=== PATIENT | male | born 1940 | race Caucasian/White ===

== ENCOUNTER 2023-12-22 13:25 | Inpatient (IN) | payer MEDICARE, SELFPAY ==
--- NOTE | ~2023-12-22 | XR_ITS ---
EXAMINATION: XR CHEST CLINICAL INFORMATION: Lightheadedness COMPARISON: None available. TECHNIQUE: 2 views of the chest were obtained. FINDINGS: No significant abnormality is noted involving the heart, lungs, mediastinum, bony thorax or soft tissues. Right shoulder replacement. XR/XR chest 2V IMPRESSION: No active cardiopulmonary process. Electronically signed by: Sudhir Lackey DO 12/22/2023 02:56 PM EST
--- NOTE | ~2023-12-22 | CT_ITS ---
EXAMINATION: CT HEAD WITHOUT CONTRAST CLINICAL INFORMATION: Loss of taste and smell. COMPARISON: None available. TECHNIQUE: Contiguous axial imaging was performed from the skull base to vertex without intravenous administration of contrast. This CT examination was performed using dose optimization techniques as appropriate, variously including the following: *Automated exposure control *Adjustment of mA and/or kV according to patient size (this includes techniques or standardized protocols for targeted exams where dose is matched to indication/reason for exam; i.e. extremities or head) *Use of iterative reconstruction technique DLP: 720 mGy-cm FINDINGS: There is no acute intracranial hemorrhage or evidence of territorial infarction. No abnormal mass effect or midline shift is seen. Thomas to white matter differentiation is well preserved. There is very mild patchy low attenuation change in the periventricular white matter spaces, commonly associated with chronic microangiopathy. The ventricles are normal in size. No extra-axial fluid collections are identified. The calvarium and scalp soft tissues are normal. The middle ear cavity and mastoid air cells are clear. A moderately large mucus retention cyst is seen posteriorly within the left maxillary sinus, with mild peripheral ossification. The remaining visualized paranasal sinuses are clear. CT/CT head/brain wo IV con IMPRESSION: 1. No acute intracranial pathology. 2. There is very mild patchy low attenuation change in the periventricular white matter spaces, commonly associated with chronic microangiopathy. 3. There is left maxillary sinusitis. Electronically signed by: Rupesh Hines MD 12/23/2023 10:06 PM ABBY
--- NOTE | 2023-12-22 13:28 | ED.GENADULT ---
HPI - General Adult General Chief complaint: Dizziness Stated complaint: dizziness Time Seen by Provider: 12/22/23 18:28 Source: patient, family (daughter), RN notes reviewed and old records reviewed Mode of arrival: ambulatory Limitations: no limitations History of Present Illness ED Provider: Margie WASSERMAN narrative: 83-year-old male past medical history significant for hypertension, prostate cancer, 5 years in remission presents for evaluation of dizziness. The patient's prostate cancer was treated with radiation, Patient reports dizziness for the last 1 month. His dizziness tends to be worse with positional changes He endorses decreased appetite, nausea. He denies any headache, chest pain, abdominal pain. Denies any nausea, vomiting, diarrhea. The patient is prescribed omeprazole, losartan/HCTZ, tamsulosin, he was on meloxicam but stopped this about a month ago He denies any other medications or medication changes Denies any fevers, chills. He has no other complaints or concerns at this time Related Data Allergies Allergy/AdvReac Type Severity Reaction Status Date / Time No Known Allergies Allergy Verified 12/22/23 13:30 Review of Systems Constitutional: Constitutional: Denies body ache(s), Denies chills, Denies fever(s), Reports poor appetite and Reports weakness Eyes: Eyes: Denies blurry vision ENT: Reports vertigo and Reports dizziness Cardiovascular: Cardiovascular: Denies chest pain and Denies dyspnea Respiratory: Respiratory: Denies cough and Denies dyspnea Gastrointestinal: Gastrointestinal: Denies abdominal pain, Denies nausea and Denies vomiting Musculoskeletal: Musculoskeletal: Denies back pain Integumentary/Breasts: Skin/Breast: Denies rash Neurologic: Reports vertigo, Reports dizziness and Reports weakness Psychiatric: Psychiatric: Denies anxiety PMFSH Social History Social History Smoked in Last 30 Days: No Use of substances other than those prescribed or required for medical reasons: No Advance Directives: No Advance Directives Information Provided: No Physical Exam ED Vital Signs: Vital Signs - 24 hr 12/22/23 13:29 12/22/23 18:34 12/22/23 19:02 Temperature 96.6 F L 98.0 F Pulse Rate 82 61 62 Respiratory Rate 18 14 Blood Pressure 102/62 95/60 103/64 Pulse Oximetry 98 98 Oxygen Delivery Method Room Air Room Air 12/22/23 19:03 12/22/23 19:06 Temperature Pulse Rate 63 78 Respiratory Rate Blood Pressure 109/67 97/54 L Pulse Oximetry 98 Oxygen Delivery Method Room Air BMI result Body Mass Index 29.2 Const General: healthy appearing, comfortable, no acute distress, alert and awake Nutritional Appearance: well nourished Orientation/consciousness: patient oriented x3 HENMT Head: Yes normocephalic and Yes atraumatic Eyes Eyelids: Yes eyelids normal Conjunctivae: conjunctivae normal Sclerae: sclerae normal Corneas: corneas normal Pupils: Equal, round and reactive pupils present EOM: EOMs intact bilaterally Neck Neck: Yes full ROM Resp Effort & Inspection: normal respiratory effort, able to speak in complete sentences and not labored Cardio Rate: regular rate Rhythm: regular rhythm GI Inspection: No distended Palpation (GI): Soft to palpation, not firm, nontender, no guarding and not rigid Skin General skin exam: elasticity normal Neuro General: patient oriented x3 Cranial nerves: Yes CN's II-XII intact bilaterally, Yes Equal, round and reactive pupils present and Yes Bilaterally intact EOM present Cognition (Neuro): normal cognition Extrem Other: Moving all extremities well without any obvious deformities Course Course Course Narrative: RME performed by Brandee Bradford PA-C. Patient is an 83 year old assigned male at presenting to the emergency department with a month of lightheadedness. Patient states he gets periods of feeling like he is going to pass out. Detailed physical exam and review of systems are deferred to the office support associate. EKG, labs, imaging, and swabs ordered. Patient placed back in the waiting room pending room availability and results. Reevaluation(s) Reevaluation #1: Patient is not orthostatic, he will receive 2 L IV fluid due to the ALBERT and likely hypovolemia Time: 20:17 Medications Administered Generic Name Dose Route Start Last Admin Trade Name Freq PRN Reason Stop Dose Admin Sodium Chloride 1,000 mls @ 999 mls/hr 12/22/23 20:15 12/22/23 20:15 Ns IV 12/22/23 22:15 999 mls/hr .Q1H1M [facility] Administration Medical Decision Making Medical Decision Making MDM Narrative: 83-year-old male with past medical history as documented above presents for evaluation of dizziness x1 month. He denies any history of chronic kidney disease or kidney issues at all. He is mildly hypotensive as low as 97/54. He is not tachycardic. Plan to get orthostatic vital signs. The patient's labs are significant for a creatinine of 2.43 with a BUN of 69. Possibly related to dehydration, we will get a urinalysis when the patient is able to give 1. He denies any flank pain or abdominal pain, less likely obstructive uropathy. I will attempt to get records from Differential Diagnosis Differential Diagnoses: The differential diagnosis associated with the presentation includes ALBERT Dehydration Obstructive uropathy less likely UTI Admission/Observation Consideration of admission/observation: Escalation of care including admission/observation considered Consult Healthcare Provider Management of the patient was discussed with: Hospitalist Lab Data MDM Lab Attestation statement: I reviewed the patient's lab results. No leukocytosis. The patient has a very mild anemia, normal platelet count. No significant electrolyte abnormalities the patient's BUN is elevated to 69 with a creatinine of 2.43. This likely represents ALBERT, the patient denies any known history of kidney disease we do not have any previous for comparison 12/22/23 13:52 12/22/23 13:52 Labs: Lab Results 12/22/23 12/22/23 Range/Units 13:52 19:16 WBC 5.1 (4.8-10.8) X10*3/uL RBC 4.20 L (4.60-5.80) X10*6/uL Hgb 13.8 L (14.0-18.0) g/dl Hct 39.0 L (42.0-52.0) % MCV 92.9 (80.0-98.0) fL MCH 32.9 (27.0-33.0) pg MCHC 35.4 (31.0-36.0) g/dl RDW 13.0 (11.0-16.0) % Plt Count 176 (160-400) X10*3/uL MPV 10.5 (9.4-12.4) fL Immature Gran % (Auto) 0.2 (0.0-0.4) % Neut % (Auto) 71.1 (45-73) % Lymph % (Auto) 17.8 L (20-40) % [place] % (Auto) 9.7 (2-11) % Eos % (Auto) 0.6 (0-4) % Baso % (Auto) 0.6 (0-2) % Lymph # (Auto) 0.9 L (1.2-4.9) X10*3/uL [place] # (Auto) 0.5 (0.1-1.2) X10*3/uL Eos # (Auto) 0.0 (0.0-0.4) X10*3/uL Baso # (Auto) 0.0 (0.0-0.2) X10*3/uL Abs Immat Gran (auto) 0.01 (0.00-0.03) X10*3/uL Absolute Neuts (auto) 3.6 (2.0-8.3) x10*3/uL Absolute Nucleated RBC 0.000 (0.0-0.012) X10*3/uL Nucleated RBC % (auto) 0.0 (0.0-0.2) /100WBC PT 12.8 H (10.9-12.4) SEC INR 1.1 (0.9-1.1) APTT 31.8 (26.0-36.8) SEC Sodium 140 (135-145) mmol/L Potassium 3.9 (3.3-5.1) mmol/L Chloride 101 (96-108) mmol/L Carbon Dioxide 22 (22-29) mmol/L Anion Gap 21 H (12-20) BUN 69 H (9-16) mg/dL Creatinine 2.43 H (0.5-1.4) mg/dL Estim Creat Clear Calc 26.4 Estimated GFR 26 Random Glucose 95 (60-115) mg/dL Calcium 10.7 H (8.4-10.2) mg/dL Magnesium 1.7 (1.6-2.6) mg/dL Total Bilirubin 0.9 (0.0-1.0) mg/dL AST 30 (5-37) U/L ALT 21 (0-40) U/L Alkaline Phosphatase 58 (39-117) U/L Troponin I High Sens 28.7 27.6 (<3.5-35.0) ng/L B-Natriuretic Peptide 55 (<100) pg/mL Total Protein 7.8 (6.5-8.0) g/dL Albumin 4.5 (3.5-5.0) g/dL Influenza Type A (PCR) NEGATIVE (Negative) Influenza Type B (PCR) NEGATIVE (Negative) RSV RNA Qual (PCR) NEGATIVE (Negative) SARS-CoV-2 RNA (RT-PCR) NEGATIVE (Negative) Discharge Plan Discharge Clinical Impression: ALBERT (acute kidney injury) Patient Disposition: Admitted As Inpatient Print Language: Portuguese
[2023-12-22 13:29] VITALS: BP 102/62; PULSE 82; RESP 18; TEMP 35.9; BMI 29.2
--- NOTE | 2023-12-22 13:30 | ECG_ITS ---
Test Reason : LIGHTHEADEDNESS Blood Pressure : / mmHG Vent. Rate : 076 BPM Atrial Rate : 076 BPM P-R Int : 210 ms QRS Dur : 096 ms QT Int : 378 ms P-R-T Axes : 037 -06 033 degrees QTc Int : 425 ms Sinus rhythm with 1st degree A-V block Incomplete right bundle branch block Borderline ECG No previous ECGs available Referred By: Brandee Bradford Electronically Signed By:Jono Reveles
[2023-12-22 13:59] LABS: MANUAL DIFF FLAG NO
[2023-12-22 14:01] LABS: Basophils Percent Auto 0.6 % (0-2); Eosinophils Percent Auto 0.6 % (0-4); Hemoglobin 13.8 g/dl (14.0-18.0); Imm Gran Abs Auto 0.01 X10*3/uL (0.00-0.03); Imm Gran Pct Auto 0.2 % (0.0-0.4); Lymphocytes Absolute Auto 0.9 X10*3/uL (1.2-4.9); Lymphocytes Percent Auto 17.8 % (20-40); Mean Corpuscular HGB Conc 35.4 g/dl (31.0-36.0); Mean Corpuscular Hemoglobin 32.9 pg (27.0-33.0); Mean Corpuscular Volume 92.9 fL (80.0-98.0); Mean Platelet Volume 10.5 fL (9.4-12.4); Monocytes Absolute Auto 0.5 X10*3/uL (0.1-1.2); Monocytes Percent Auto 9.7 % (2-11); Neutrophils Absolute Auto 3.6 x10*3/uL (2.0-8.3); Neutrophils Percent Auto 71.1 % (45-73); Platelet Count 176 X10*3/uL (160-400); White Blood Count 5.1 X10*3/uL (4.8-10.8)
[2023-12-22 14:06] LABS: INTERNATIONAL NORM RATIO 1.1 (0.9-1.1); Prothrombin Time 12.8 SEC (10.9-12.4)
[2023-12-22 14:08] LABS: Partial Thromboplastin Time 31.8 SEC (26.0-36.8)
[2023-12-22 14:15] LABS: Alanine Aminotransferase 21 U/L (0-40); Albumin Level 4.5 g/dL (3.5-5.0); Alkaline Phosphatase 58 U/L (39-117); Anion Gap 21 (12-20); Aspartate Amino Transferase 30 U/L (5-37); Bilirubin Total 0.9 mg/dL (0.0-1.0); Blood Urea Nitrogen 69 mg/dL (9-16); Calcium 10.7 mg/dL (8.4-10.2); Carbon Dioxide 22 mmol/L (22-29); Chloride 101 mmol/L (96-108); Creatinine Clr Calc Pharmacy 26.4; Estimated Glomerular Filt Rate 26; Glucose Random 95 mg/dL (60-115); Magnesium 1.7 mg/dL (1.6-2.6); Potassium 3.9 mmol/L (3.3-5.1); Sodium 140 mmol/L (135-145); Total Protein 7.8 g/dL (6.5-8.0)
[2023-12-22 14:21] LABS: B Type Natriuretic Peptide 55 pg/mL (<100); Troponin-I High Sensitivity 28.7 ng/L (<3.5-35.0)
[2023-12-22 16:12] LABS: Influenza A PCR NEGATIVE (Negative); Influenza B PCR NEGATIVE (Negative); Resp Syncy Virus RNA Qual PCR NEGATIVE (Negative); SARS COV2 PCR INHOUSE NEGATIVE (Negative)
[2023-12-22 18:34] VITALS: BP 95/60; PULSE 61; RESP 14; TEMP 36.7; O2SAT 98
[2023-12-22 19:02] VITALS: BP 103/64; PULSE 62; O2SAT 98
[2023-12-22 19:03] VITALS: BP 109/67; PULSE 63
[2023-12-22 19:06] VITALS: BP 97/54; PULSE 78; O2SAT 98
[2023-12-22 19:39] LABS: Troponin-I High Sensitivity 27.6 ng/L (<3.5-35.0)
[2023-12-22] MEDS: 0.9 % Sodium Chloride 1,000 ML 999 ML IV ×2 (20:15→21:10)
[2023-12-22 21:10] VITALS: BP 99/67; PULSE 64; RESP 18; TEMP 36.6; O2SAT 100
[2023-12-22 21:19] LABS: Appearance Urine Clear; Color Urine Yellow; Glucose Urine UA Negative (Negative); Leukocyte Esterase Urine Small (1+) (Negative); Nitrite Urine Negative (Negative); UMIC TRIGGER UACC YES; Urine Blood Negative (Negative); Urine Ketones Trace mg/dL (Negative); Urine Protein Trace mg/dL (Neg-Trace)
[2023-12-22 21:26] LABS: Bacteria Urine None Seen (None Seen); RBC Urine 0-2 /HPF (0-2); Squamous Epithelial Cell Urine 0-2 /HPF (0-2); UACC Culture Trigger YES; WBC Urine 0-5 /HPF (0-5)
--- NOTE | 2023-12-22 21:42 | PM.IMHP ---
History of Present Illness Date of Service: 12/22/23 Attending physician on admission: Chavo Craft Chief Complaint: Dizziness Pt is an 83-year-old male with a PMH significant for?HTN and prostate cancer s/p radiation in remission since 2019 who presents to the ED with intermittent?dizziness and lightheadedness x1 month. Symptoms primarily occur with position changes or while walking, though also occasionally happen at rest. Patient states it occasionally feels like he is spinning, has no balance, and he often needs to hold onto something in order to steady himself and prevent himself from falling. Patient denies any falls. Patient reports during this time has had poor p.o. intake of both fluids and solids. States he drinks maybe 8 oz of water daily, and has a difficult time finishing a meal. Reports losing around 10 lb during this past month. States previously he used to eat and drink well, but 4 weeks ago suddenly lost his sense of taste and no longer likes the taste of most foods. Denies early satiety, but rather reports he no longer feels like eating due to the taste. Denies any respiratory symptoms, and states he has tested negative for COVID during this time. Denies nausea, vomiting, diarrhea, or abdominal pain. No chest pain/pressure, palpitations. Denies shortness or breath or difficulty breathing. No headache. Of note, patient is on tamsulosin and losartan-hydrochlorothiazide which he has continued to take. In the ED pt with soft BP as low as 97/54. Orthostatics positive with a drop of 10 diastolic. Labs were significant for BUN 69, creatinine 2.43 (increased from 1.36 on 09/26/2023), initial troponin 28.7 with repeat flat at 27.6. No leukocytosis. Stable H&H. No significant electrolyte abnormalities. UA negative for UTI. Tested negative for flu, RSV, COVID. CXR showed no acute cardiopulmonary process. EKG demonstrated sinus rhythm with first-degree AV block, but no evidence of significant ST elevations or depressions. Pt was treated with 2 L IVF. Pt will be admitted to the hospital for treatment and further evaluation of symptomatic orthostatic hypotension in the setting of ALBERT secondary to hypovolemia and reduced p.o. intake. Review of Systems Review of Systems: Negative except for that which is stated in the HPI. PMFSH Social History Smoked in Last 30 Days: No Use of substances other than those prescribed or required for medical reasons: No Advance Directives: No Advance Directives Information Provided: No Meds Allergies Allergy/AdvReac Type Severity Reaction Status Date / Time No Known Allergies Allergy Verified 12/22/23 13:30 Active Medications: Current Medications Acetaminophen (Acetaminophen 325 Mg Tablet) 975 mg PO Q6H PRN PRN Reason: Pain, Mild (Pain Scale 1-3), fever or headache Calcium Carbonate (Calcium Carbonate 750 Mg Tab.Chew) 750 mg PO Q4H PRN PRN Reason: Heartburn Enoxaparin Sodium (Enoxaparin Sodium 30 Mg/0.3 Ml Syringe) 30 mg SUBCUT Q24H [facility] Sodium Chloride (Ns) 1,000 mls @ 999 mls/hr IV .Q1H1M [facility] Stop: 12/22/23 22:15 Last Admin: 12/22/23 21:10 Dose: 999 mls/hr Sodium Chloride (Ns) 1,000 mls @ 75 mls/hr IVCONT .[id number] [facility] Magnesium Hydroxide (Milk Of Magnesia 30 Ml Oral.Susp) 30 ml PO DAILY PRN PRN Reason: Constipation Melatonin (Melatonin 3 Mg Tablet) 6 mg PO BEDTIME PRN PRN Reason: Insomnia Sodium Chloride (0.9 % Sodium Chloride Flush 3 Ml Syringe) 3 ml IVFLUSH QSHIFT [facility] Home Medications ?Medication ?Instructions ?Recorded ?Confirmed ?Last Taken ?Type ciclopirox 0.77 % topical cream 1 appl topical BID 12/22/23 Unknown History ipratropium bromide 21 mcg (0.03 2 spray intranasal TID 12/22/23 Unknown History %) nasal spray losartan 100 1 tab PO DAILY 12/22/23 Unknown History mg-hydrochlorothiazide 12.5 mg tablet meloxicam 15 mg tablet 15 mg PO DAILY 12/22/23 Unknown History omeprazole 20 mg capsule,delayed 20 mg PO DAILY 12/22/23 Unknown History release tamsulosin 0.4 mg capsule 0.4 mg PO DAILY 12/22/23 Unknown History Physical Exam Vital Signs and Narrative: Vital Signs: Last Vital Signs Temp 97.8 F 12/22/23 21:10 Pulse 64 12/22/23 21:10 Resp 18 12/22/23 21:10 BP 99/67 12/22/23 21:10 Pulse Ox 100 12/22/23 21:10 O2 Del Method Room Air 12/22/23 21:10 BMI result Body Mass Index 29.2 General: AOx3, no acute distress Resp: CTA bilaterally CVS: S1, S2, RRR GI: +BS, NT, no distention Skin: Warm, dry Neuro: Cranial nerves II-XII grossly intact bilaterally. Motor grossly intact bilaterally Extremities: No edema Psych: Appropriate affect Results Labs 12/22/23 13:52 12/22/23 13:52 Labs: Laboratory Results - last 24 hr 12/22/23 12/22/23 12/22/23 13:52 19:16 21:12 MCV 92.9 MCH 32.9 MCHC 35.4 RDW 13.0 Plt Count 176 MPV 10.5 Immature Gran % (Auto) 0.2 Neut % (Auto) 71.1 Lymph % (Auto) 17.8 L [place] % (Auto) 9.7 Eos % (Auto) 0.6 Baso % (Auto) 0.6 Lymph # (Auto) 0.9 L [place] # (Auto) 0.5 Eos # (Auto) 0.0 Baso # (Auto) 0.0 Abs Immat Gran (auto) 0.01 Absolute Neuts (auto) 3.6 Absolute Nucleated RBC 0.000 Nucleated RBC % (auto) 0.0 PT 12.8 H INR 1.1 APTT 31.8 Anion Gap 21 H Estim Creat Clear Calc 26.4 Estimated GFR 26 Random Glucose 95 Calcium 10.7 H Magnesium 1.7 Total Bilirubin 0.9 AST 30 ALT 21 Alkaline Phosphatase 58 Troponin I High Sens 28.7 27.6 B-Natriuretic Peptide 55 Total Protein 7.8 Albumin 4.5 Urine Color Yellow Urine Appearance Clear Urine pH 5.0 Ur Specific [place] 1.020 Urine Protein Trace Urine Glucose (UA) Negative Urine Ketones Trace Urine Blood Negative Urine Nitrite Negative Ur Leukocyte Esterase Small (1+) H Urine RBC 0-2 Urine WBC 0-5 Ur Squamous Epith Cells 0-2 Urine Bacteria None Seen Hyaline Casts 3-5 Influenza Type A (PCR) NEGATIVE Influenza Type B (PCR) NEGATIVE RSV RNA Qual (PCR) NEGATIVE SARS-CoV-2 RNA (RT-PCR) NEGATIVE Imaging Radiologist's Impressions: Impressions Chest X-Ray 12/22/23 13:30 IMPRESSION: No active cardiopulmonary process. Electronically signed by: Sudhir Lackey DO 12/22/2023 02:56 PM EST RP Assessment and Plan (1) ALBERT (acute kidney injury): Status: Acute Plan Pt is an 83-year-old male with a PMH significant for?HTN and prostate cancer s/p radiation in remission since 2019 who presents to the ED with intermittent?dizziness and lightheadedness x1 month. Pt will be admitted to the hospital for treatment and further evaluation of symptomatic orthostatic hypotension in the setting of ALBERT secondary to hypovolemia and reduced p.o. intake. ALBERT Creatinine 2.43 at time of presentation, elevated from 1.36 on 09/26/2023 Secondary to reduced p.o. intake Will continue to take hydrochlorothiazide and tamsulosin Reports has not been eating or drinking much x1 month since lost sense of taste; has been drinking around 8 oz of water daily Rest of exam benign: No N/V/D/abd pain; COVID/flu/RSV negative Received 2 L IVF in the ED Hold losartan-hydrochlorothiazide, tamsulosin Monitor creatinine Symptomatic orthostatic hypotension Patient with dizziness, lightheadedness x1 Month orthostatics positive with drop of 10 diastolic Secondary to hypovolemia in the setting of reduced p.o. intake while continuing hydrochlorothiazide and tamsulosin Patient received 2 L IVF Repeat orthostatics in the morning Encourage p.o. intake HTN Hold antihypertensives for now Likely d/c hydrochlorothiazide upon discharge BPH/hx of prostate cancer Hold tamsulosin GERD PPI Full Code Attending:?Dr. Santiago DVT Prophylaxis: Lovenox Pt will require a hospitalization of at least two nights for treatment of?symptomatic orthostatic hypotension setting of ALBERT secondary to hypovolemia due to reduced p.o. intake. Patient will require IV fluid resuscitation and close monitoring of labs and vitals. Quality Stroke Does the patient have a stroke diagnosis?: No VTE Prior VTE?: No VTE Risk Level:: Medical - moderate - high VTE Device Contraindication: Treatment Not Indicated VTE Drug Contraindication: N/A - Med Ordered
[2023-12-22] MEDS: 0.9 % Sodium Chloride 1,000 ML 75 ML IVCONT (22:18)
[2023-12-23] VITALS (7 sets, daily range): BP systolic 95–128; BP diastolic 59–73; PULSE 63–87; RESP 12–20; TEMP 36.2–36.8; O2SAT 97–100
[2023-12-23 05:07] LABS: MANUAL DIFF FLAG NO
[2023-12-23 05:08] LABS: Basophils Percent Auto 1.1 % (0-2); Eosinophils Absolute Auto 0.1 X10*3/uL (0.0-0.4); Eosinophils Percent Auto 2.4 % (0-4); Hematocrit 33.9 % (42.0-52.0); Hemoglobin 12.2 g/dl (14.0-18.0); Imm Gran Abs Auto 0.01 X10*3/uL (0.00-0.03); Imm Gran Pct Auto 0.3 % (0.0-0.4); Mean Corpuscular Hemoglobin 33.3 pg (27.0-33.0); Mean Corpuscular Volume 92.6 fL (80.0-98.0); Mean Platelet Volume 10.8 fL (9.4-12.4); Monocytes Absolute Auto 0.4 X10*3/uL (0.1-1.2); Neutrophils Absolute Auto 2.1 x10*3/uL (2.0-8.3); Neutrophils Percent Auto 56.2 % (45-73); Platelet Count 160 X10*3/uL (160-400); Red Blood Count 3.66 X10*6/uL (4.60-5.80); Red Cell Distribution Width 12.7 % (11.0-16.0); White Blood Count 3.7 X10*3/uL (4.8-10.8)
[2023-12-23 05:22] LABS: Anion Gap 17 (12-20); Blood Urea Nitrogen 62 mg/dL (9-16); Calcium 9.6 mg/dL (8.4-10.2); Carbon Dioxide 19 mmol/L (22-29); Chloride 106 mmol/L (96-108); Creatinine Clr Calc Pharmacy 39.1; Estimated Glomerular Filt Rate 41; Glucose Random 87 mg/dL (60-115); Magnesium 1.5 mg/dL (1.6-2.6); Potassium 3.8 mmol/L (3.3-5.1); Sodium 138 mmol/L (135-145)
--- NOTE | 2023-12-23 07:02 | PC.NURSE ---
report given to Melany Omalley RN
[2023-12-23] MEDS: Enoxaparin Sodium 30 MG/0.3 ML SYRINGE SUBCUT (08:32)
--- NOTE | 2023-12-23 11:23 | PHA.MEDREC ---
Addendum entered by Gianna Diaz RPh 12/23/23 11:28: reviewed by [facility]. Original Note: Pharmacy Consult ? Medication Reconciliation Pharmacy has completed the medication reconciliation. Spoke to patient to confirm med list. Patient states he is no longer taking Meloxicam 15 mg.
--- NOTE | 2023-12-23 12:24 | MHC.CM.PN ---
IMM 12/23/23, PT W/DIZZINESS, OTHOSTATIC HYPOTENSION AND ALBERT, CM MET W/PT WHO REPORTS HE LIVES W/, IS INDEP W/ALL CARE AND DENIES USE OF DME/SERVICES HOWEVER PT REPORTS HIS RECEIVES [facility] AND HH SERVICES, PT DECLINES NEED FOR SERVICES FOR HIMSELF AND GOAL FOR DC IS HOME SELF-CARE. PT VERIFIES PCP IS DR. GREGORIA ALFREDO AND PCP IS LEAH JACKSON [phone], PT DECLINED TO COMPLETE A NEW HCP IT WAS COMPLETED W/[facility]AIR OFFICE, COPY REQUESTED.
[2023-12-23] MEDS: 0.9 % Sodium Chloride 1,000 ML 75 ML IVCONT (13:00)
--- NOTE | 2023-12-23 14:09 | HO.PM.IMPN ---
Subjective Subjective Date of Service: 12/23/23 Review of Systems Follow up albert, dehydration feeling better today Physical Exam Vital Signs: Vital Signs: Last Vital Signs Temp 98.1 F 12/23/23 11:16 Pulse 72 12/23/23 11:16 Resp 20 12/23/23 11:16 BP 128/73 12/23/23 11:16 Pulse Ox 98 12/23/23 11:16 O2 Del Method Room Air 12/23/23 11:16 BMI result Body Mass Index 29.2 Appearing in no acute distress lung sounds are clear to auscultation heart regular rate rhythm, clear S1, S2 positive bowel sounds, abdomen is soft, nontender neuro patient is alert x3, no focal deficits Objective Data Active Medications Acetaminophen (Acetaminophen 325 Mg Tablet) 975 mg PO Q6H PRN PRN Reason: Pain, Mild (Pain Scale 1-3), fever or headache Calcium Carbonate (Calcium Carbonate 750 Mg Tab.Chew) 750 mg PO Q4H PRN PRN Reason: Heartburn Enoxaparin Sodium (Enoxaparin Sodium 30 Mg/0.3 Ml Syringe) 30 mg SUBCUT Q24H [facility] Last Admin: 12/23/23 08:32 Dose: 30 mg Documented By: XIANG Sodium Chloride (Ns) 1,000 mls @ 75 mls/hr IVCONT .[id number] [facility] Last Admin: 12/23/23 13:00 Dose: 75 mls/hr Documented By: XIANG Magnesium Hydroxide (Milk Of Magnesia 30 Ml Oral.Susp) 30 ml PO DAILY PRN PRN Reason: Constipation Melatonin (Melatonin 3 Mg Tablet) 6 mg PO BEDTIME PRN PRN Reason: Insomnia Sodium Chloride (0.9 % Sodium Chloride Flush 3 Ml Syringe) 3 ml IVFLUSH QSHIFT [facility] Last Admin: 12/23/23 07:57 Dose: Not Given Documented By: LUKE Non-Admin Reason: Previously Administered Labs 12/23/23 04:49 12/23/23 04:49 Labs: Laboratory Results - last 24 hr 12/22/23 12/22/23 12/22/23 13:52 19:16 21:12 MCV MCH MCHC RDW Plt Count MPV Immature Gran % (Auto) Neut % (Auto) Lymph % (Auto) [place] % (Auto) Eos % (Auto) Baso % (Auto) Lymph # (Auto) [place] # (Auto) Eos # (Auto) Baso # (Auto) Abs Immat Gran (auto) Absolute Neuts (auto) Absolute Nucleated RBC Nucleated RBC % (auto) PT 12.8 H INR 1.1 APTT 31.8 Anion Gap 21 H Estim Creat Clear Calc 26.4 Estimated GFR 26 Random Glucose 95 Calcium 10.7 H Magnesium 1.7 Total Bilirubin 0.9 AST 30 ALT 21 Alkaline Phosphatase 58 Troponin I High Sens 28.7 27.6 B-Natriuretic Peptide 55 Total Protein 7.8 Albumin 4.5 Urine Color Yellow Urine Appearance Clear Urine pH 5.0 Ur Specific [place] 1.020 Urine Protein Trace Urine Glucose (UA) Negative Urine Ketones Trace Urine Blood Negative Urine Nitrite Negative Ur Leukocyte Esterase Small (1+) H Urine RBC 0-2 Urine WBC 0-5 Ur Squamous Epith Cells 0-2 Urine Bacteria None Seen Hyaline Casts 3-5 Influenza Type A (PCR) NEGATIVE Influenza Type B (PCR) NEGATIVE RSV RNA Qual (PCR) NEGATIVE SARS-CoV-2 RNA (RT-PCR) NEGATIVE 12/23/23 04:49 MCV 92.6 MCH 33.3 H MCHC 36.0 RDW 12.7 Plt Count 160 MPV 10.8 Immature Gran % (Auto) 0.3 Neut % (Auto) 56.2 Lymph % (Auto) 28.0 [place] % (Auto) 12.0 H Eos % (Auto) 2.4 Baso % (Auto) 1.1 Lymph # (Auto) 1.0 L [place] # (Auto) 0.4 Eos # (Auto) 0.1 Baso # (Auto) 0.0 Abs Immat Gran (auto) 0.01 Absolute Neuts (auto) 2.1 Absolute Nucleated RBC 0.000 Nucleated RBC % (auto) 0.0 PT INR APTT Anion Gap 17 Estim Creat Clear Calc 39.1 Estimated GFR 41 Random Glucose 87 Calcium 9.6 D Magnesium 1.5 L Total Bilirubin AST ALT Alkaline Phosphatase Troponin I High Sens B-Natriuretic Peptide Total Protein Albumin Urine Color Urine Appearance Urine pH Ur Specific [place] Urine Protein Urine Glucose (UA) Urine Ketones Urine Blood Urine Nitrite Ur Leukocyte Esterase Urine RBC Urine WBC Ur Squamous Epith Cells Urine Bacteria Hyaline Casts Influenza Type A (PCR) Influenza Type B (PCR) RSV RNA Qual (PCR) SARS-CoV-2 RNA (RT-PCR) Microbiology Microbiology Results: Microbiology 12/22/23 21:27 Urine Culture - Preliminary Urine clean catch - Clean Catch Midstream No growth to date. Assessment and Plan (1) ALBERT (acute kidney injury): Status: Acute Plan 83-year-old male with a PMH significant for?HTN and prostate cancer s/p radiation in remission since 2019 who presents to the ED with intermittent?dizziness and lightheadedness x1 month. Pt will be admitted to the hospital for treatment and further evaluation of symptomatic orthostatic hypotension in the setting of ALBERT secondary to hypovolemia and reduced p.o. intake. loss of taste and smell over one month leading to poor appetite and poor nutrition check brain ct to r/o stroke as cause of symptom ALBERT. Trending down Creatinine 2.43 at time of presentation Secondary to reduced p.o. intake and hydrochlorothiazide Reports has not been eating or drinking much x1 month since lost sense of taste; has been drinking around 8 oz of water daily IV fluids Hold losartan-hydrochlorothiazide, tamsulosin Monitor creatinine Symptomatic orthostatic hypotension Patient with dizziness, lightheadedness x1 Secondary to hypovolemia in the setting of reduced p.o. intake while continuing hydrochlorothiazide and tamsulosin follow orthostatics Encourage p.o. intake HTN Hold antihypertensives for now Likely d/c hydrochlorothiazide upon discharge BPH/hx of prostate cancer Hold tamsulosin GERD PPI Full Code Attending:?Dr. Lackey DVT Prophylaxis: VideoSurf Quality Stroke Does the patient have a stroke diagnosis?: No VTE Prior VTE?: No VTE Risk Level:: Medical - moderate - high VTE Device Contraindication: Treatment Not Indicated VTE Drug Contraindication: N/A - Med Ordered
[2023-12-23] MEDS: Magnesium Sulfate/H2O 2 GM/50 ML PIGGYBACK IV (14:43)
[2023-12-24] VITALS: BP 111/70; PULSE 53; RESP 20; TEMP 36.6; O2SAT 97
[2023-12-24] MEDS: 0.9 % Sodium Chloride 1,000 ML 75 ML IVCONT (02:42)
[2023-12-24] MEDS: 0.9 % Sodium Chloride Flush 3 ML SYRINGE IVFLUSH (02:42)
[2023-12-24 02:59] VITALS: BP 113/68; PULSE 57; RESP 20; TEMP 36.4; O2SAT 98
[2023-12-24 08:00] VITALS: BP 114/70; PULSE 58; RESP 18; TEMP 36.8; O2SAT 100
[2023-12-24 08:01] LABS: Anion Gap 13 (12-20); Blood Urea Nitrogen 38 mg/dL (9-16); Calcium 9.6 mg/dL (8.4-10.2); Carbon Dioxide 22 mmol/L (22-29); Chloride 108 mmol/L (96-108); Creatinine Clr Calc Pharmacy 62.9; Estimated Glomerular Filt Rate > 60; Glucose Random 84 mg/dL (60-115); Potassium 4.2 mmol/L (3.3-5.1); Sodium 139 mmol/L (135-145)
[2023-12-24] MEDS: Enoxaparin Sodium 30 MG/0.3 ML SYRINGE SUBCUT (08:54)
[2023-12-24 09:57] LABS: Magnesium 1.7 mg/dL (1.6-2.6)
[2023-12-24 10:05] VITALS: BP 114/70; PULSE 58; O2SAT 100
--- NOTE | 2023-12-24 11:07 | P.DS_ITS ---
DS: Providers Provider Date of Service: 12/24/23 Date of admission: 12/22/23 20:38 Primary care physician: Ezra Parada MD DS: Diagnosis Discharge Diagnosis (1) ALBERT (acute kidney injury): Status: Acute DS: Summary Hospital Course Hospital Course: History and physical as per admitting provider. Pt is an 83-year-old male with a PMH significant for?HTN and prostate cancer s/p radiation in remission since 2019 who presents to the ED with intermittent?dizziness and lightheadedness x1 month. Symptoms primarily occur with position changes or while walking, though also occasionally happen at rest. Patient states it occasionally feels like he is spinning, has no balance, and he often needs to hold onto something in order to steady himself and prevent himself from falling. Patient denies any falls. Patient reports during this time has had poor p.o. intake of both fluids and solids. States he drinks maybe 8 oz of water daily, and has a difficult time finishing a meal. Reports losing around 10 lb during this past month. States previously he used to eat and drink well, but 4 weeks ago suddenly lost his sense of taste and no longer likes the taste of most foods. Denies early satiety, but rather reports he no longer feels like eating due to the taste. Denies any respiratory symptoms, and states he has tested negative for COVID during this time. Denies nausea, vomiting, diarrhea, or abdominal pain. No chest pain/pressure, palpitations. Denies shortness or breath or difficulty breathing. No headache. Of note, patient is on tamsulosin and losartan- hydrochlorothiazide which he has continued to take. In the ED pt with soft BP as low as 97/54. Orthostatics positive with a drop of 10 diastolic. Labs were significant for BUN 69, creatinine 2.43 (increased from 1.36 on 09/26/2023), initial troponin 28.7 with repeat flat at 27.6. No leukocytosis. Stable H&H. No significant electrolyte abnormalities. UA negative for UTI. Tested negative for flu, RSV, COVID. CXR showed no acute cardiopulmonary process. EKG demonstrated sinus rhythm with first-degree AV block, but no evidence of significant ST elevations or depressions. Pt was treated with 2 L IVF. Pt will be admitted to the hospital for treatment and further evaluation of symptomatic orthostatic hypotension in the setting of ALBERT secondary to hypovolemia and reduced p.o. intake. 83-year-old man treated for ALBERT, symptomatic orthostatic hypotension secondary to poor appetite, poor p.o. intake and lost of taste and smell for over a month. Patient reported that he lost his taste and smell which is likely the reason why he was in ALBERT because of dehydration. In terms of the ALBERT. He was treated with IV fluids and hydrochlorothiazide and losartan were held. During the hospitalization he has been eating and ALBERT has resolved. Plan is to stop the hydrochlorothiazide and losartan on discharge. He also was noted to have symptomatic orthostatic hypotension with some dizziness also related to dehydration and poor oral intake. Patient has had no more symptoms of dizziness since admission. His blood pressures have been stable even off his antihypertensives. Brain CT was done to rule out stroke which was negative, did show some micro angiopathy possibly related to some vascular dementia that could cause symptoms of lost her taste or smell. Discussed case with patient and his daughter, if this loss of taste or smell lingers over 3 months he could consider following up with a neurologist or even his primary care provider. BPH. Continue tamsulosin GERD. Continue PPI Time Attestation Discharge Coordination Time (in mins): 40 Quality: Safe Use of Opioids Does Pt have an Active Cancer Diagnosis on the Problem List?: No Quality: Stroke Does the patient have a stroke diagnosis?: No Physical Exam Vital Signs: Vital Signs: Last Vital Signs Temp 98.3 F 12/24/23 08:00 Pulse 58 12/24/23 10:05 Resp 18 12/24/23 08:00 BP 114/70 12/24/23 10:05 Pulse Ox 100 12/24/23 10:05 O2 Del Method Room Air 12/24/23 08:00 BMI result Body Mass Index 29.2 Appearing in no acute distress head is normocephalic atraumatic eyes pupils are PERRLA sclera is anicteric mouth throat mucous membranes are intact and moist neck is supple no lymphadenopathy, no JVD noted lung sounds are clear to auscultation heart regular rate rhythm, clear S1, S2 positive bowel sounds, abdomen is soft, nontender neuro patient is alert x3, no focal deficits DS: Data Data Completed and Pending Labs on day of discharge: Laboratory Results - last 24 hr 11/12/24 06:23 Sodium 139 Potassium 4.2 Chloride 108 Carbon Dioxide 22 Anion Gap 13 BUN 38 H Creatinine 1.02 Estim Creat Clear Calc 62.9 Estimated GFR > 60 Random Glucose 84 Calcium 9.6 Magnesium 1.7 Discharge Plan Discharge Anticipated Discharge Date/Time: 12/24/23 11:00 Patient Disposition: Home, Self-Care Discharge Diagnosis: ALBERT Hypomagnesemia Lost of taste and smell Referrals: Ezra Parada MD [Primary Care Provider] - 1 Week Discharge Medications: Continued tamsulosin 0.4 mg capsule 0.4 mg PO DAILY omeprazole 20 mg capsule,delayed release(DR/EC) 20 mg PO DAILY@0630 ipratropium bromide 21 mcg (0.03 %) spray,non-aerosol 2 spray intranasal TID ciclopirox 0.77 % cream 1 appl topical BID PRN (Reason: Rash) Discontinued losartan-hydrochlorothiazide 100-12.5 mg tablet 1 tab PO DAILY Discharge Orders: Discharge Order (Routine); Ordered 12/24/23 Ordered By: Carmenza Rodrigues Diet: Advance to usual diet Activity on Discharge: As tolerated Stand Alone Forms: Patient Portal Discharge page Print Language: Hebrew Care Plan Goals: Your loss of taste and/or smell may linger, although you are not diagnosed with COVID there may be a variety of other reasons for this. If you noticed your taste and smell has not returned within the next 3 months you may consider following up with a neurologist. Make sure you are drinking enough fluid throughout the day. Protein shakes may help when appetite is poor. Health Concerns: ALBERT Hypomagnesemia Lost of taste and smell Plan of Treatment: Your losartan and hydrochlorothiazide have been stopped, your blood pressure has been stable. Follow up with your primary care provider for management of blood pressure. Assessment: See discharge summary
--- NOTE | 2023-12-24 11:52 | MHC.CM.PN ---
PT MEDICALLY CLEARED FOR DC HOME SELF CARE, PT WILL DRIVE SELF HOME.
[2023-12-24 12:00] VITALS: BP 112/71; PULSE 58; RESP 20; TEMP 36.9; O2SAT 99
== END 2023-12-24 12:23 | disposition home or self-care (01) | DRG 641 ==
LOC: HO.ED 20:17 → HO.EDOVER 20:54 → HO.IMC 12-23 07:29
PROVIDERS: Physician Assistant Medical; Admitting Provider Internal Medicine; Emergency Provider Emergency Medicine; PCP Internal Medicine; Visit Provider Nurse Practitioner Acute Care
DX: E86.0 Dehydration (principal); N17.9 Acute kidney failure, unspecified; I10 Essential (primary) hypertension; E86.1 Hypovolemia; E83.42 Hypomagnesemia; K21.9 Gastro-esophageal reflux disease without esophagitis; N40.0 Benign prostatic hyperplasia without lower urinary tract symptoms; I95.1 Orthostatic hypotension; Z85.46 Personal history of malignant neoplasm of prostate; Z20.822 Contact with and (suspected) exposure to COVID-19; Z79.899 Other long term (current) drug therapy
CPT/HCPCS: 0241U; 36415; 70450; 71046; 80048; 80053; 81001; 83735; 83880; 84484; 85025; 85610; 85730; 87086; 93005; 97162; 99285; J1650; J3475

== ENCOUNTER → 2023-12-22 13:30 | Outpatient (BNV) | payer MEDICARE, SELFPAY | PROVIDERS: Admitting Provider Internal Medicine; Emergency Provider Emergency Medicine; PCP Internal Medicine; Visit Provider Internal Medicine Cardiovascular Disease | DX: I44.0 Atrioventricular block, first degree (principal); I45.10 Unspecified right bundle-branch block | CPT/HCPCS: 93010 ==

== ENCOUNTER → 2023-12-22 20:38 | Outpatient (BNV) | payer MEDICARE, SELFPAY | PROVIDERS: Admitting Provider Internal Medicine; Emergency Provider Emergency Medicine; PCP Internal Medicine; Visit Provider Nurse Practitioner Acute Care | DX: N17.9 Acute kidney failure, unspecified (principal) | CPT/HCPCS: 99222; 99232; 99239 ==

== ENCOUNTER 2024-08-03 08:55 | Outpatient (AMB) | payer MEDICARE, SELFPAY ==
--- NOTE | 2024-08-03 09:02 | MHC.OFFWIV ---
Intake Vital Signs 08/03/24 09:04 Height 5 ft 9 in Weight 210 lb BMI 31.0 Pulse 62 Pulse Source Pulse Oximeter Temp 97.8 F Temp Source Oral Pulse Oximetry (%) 90 L Oxygen Delivery Method Room Air Intake Visit Reasons: EP-both arm rash Patient Tobacco Use Status: Never used Tobacco Clinical Application Specialist Required: No Allergies No Known Allergies Allergy (Verified 08/03/24 09:06) HPI HPI Comments History of Present Illness Details 84 y/o Male patient who presents to the walk in clinic with c/o Rash covering both his Upper Arms. Reports noticing the rash ~ 1 week ago, when he was working on his Garden. He does describe the rash as very itchy and Red. [facility] Medical History (Updated 08/03/24 @ 09:32 by Tessa Grover NP) Rash and nonspecific skin eruption Social History Household Members: Spouse Housing: House Do you presently have visiting nurse or other home services: No Patient Tobacco Use Status: Never used Tobacco service: Yes Review of Systems Const All systems reviewed & are unremarkable except as noted in HPI and below Physical Exam Vital Signs: Last Vital Signs Temp 97.8 F 08/03/24 09:04 Pulse 62 08/03/24 09:04 Pulse Ox 90 L 08/03/24 09:04 Oxygen Delivery Method Room Air 08/03/24 09:04 BMI result Body Mass Index 31.0 Const General: no acute distress Nutritional Appearance: obese Orientation/consciousness: patient oriented x3 Skin General skin exam: dry skin and erythema Full body images:  1. Erythematous Macular Papular rash 2. Erythematous Macular Papular rash Neuro General: patient oriented x3, gait normal and moves all extremities Psych Speech and movement: Normal speech and movement present Assessment & Plan Assessment & Plan (1) Rash and nonspecific skin eruption: Code(s): R21 - Rash and other nonspecific skin eruption Plan: Prescribed Steroid Cream for 7-14 days. Benadrly OTC for itching Keep Area clean and dry. Medications: New betamethasone valerate 0.1% 1 appl topical BID 45 grams 0RF 14 days R21 - Rash and other nonspecific skin eruption Coding Level of Care Code Est Pt Level 4 (19790) Diagnoses Rash and nonspecific skin eruption R21 Time Spent (min) 20
[2024-08-03 09:04] VITALS: PULSE 62; TEMP 36.6; O2SAT 90; BMI 31.0
--- OUTSIDE RECORDS SUMMARY | 2024-08-03 09:29 | XMS_ITS | Data Portability ---
Author Organization [place] - [facility], Allergy Address [address] [address] Care Team Providers Care Stone Derrickman And Rigger Name Role Phone GREGORIA ALFREDO Primary Care Provider Assessment Encounter Date Assessment Date Assessment LastModified by Organization Details LastModified Time 10/10/2023 10/10/2023 Discussed various types, models and levels of technology. Patient is interested in mid level technology in rechargeable option. Recommended [employer] 330 Smart RADHA R in silver shin color with #3 R/L M receivers small single vent domes $4544 diamond quote given. Patient needs to discuss finances before proceeding. Will contact us when ready to proceed. [email or web address] Not available 12/09/2023 11:57:57 12/26/2023 12/26/2023 Doing very well. Increased to #4 adaptation for best clarity. TV much lower. Hearing much better. F/U 2 weeks. [email or web address] Not available 12/26/2023 14:47:58 01/16/2024 01/16/2024 Hearing better since increased to #4 adaptation. occasionally getting FB - reran FB Sweep. ^ mo FFU appt made. [email or web address] Not available 01/16/2024 15:06:30 06/18/2024 06/18/2024 getting dislodged with masks etc. went to shorter #2 length and gave retention wire . CL & CK both aids working fine. Annual appt made in Nov prior to my longterm. [email or web address] Not available 06/18/2024 15:06:37 Plan of Treatment Reminders Order Date Submit Date Provider Last Modified By Organization Details Last Modified Time Details Appointments [facility] Fitting Follow Up () 2024 01:30P M EARL GARDNER, SHAHRZAD Not available Not available Not available Lab None recorded . Referral None recorded . Procedures None recorded . Surgeries None recorded . Imaging None recorded . Medication Orders None recorded . Patient TargetsNo targets recorded. Patient InstructionsNo instructions recorded. Reason for Referral None Reported. Results Created Date Observation Date Name Description Value Unit Range Abnormal Flag Note LastModifiedBy Organization Detail LastModifiedTime 10/03/19 24 07/12/2022 imagi ng/di agnos tic resul t No observ ation record ed. [email or web address] Not Available 19:57:17 10/08/19 24 audio gram No observ ation record ed. [email or web address] Not Available 2023 15:29:20 Result Notes None recorded. Problems Name Problem SNOMED Code Status Onset Date Resolution Date Notes Provider Name and Address Organization Details Recorded Time Nasal congestio n 23337987 Active 2021 Nasal congestio n; Note: Date Diagnosed : 06/20/2021 12:18 PM (R09.81) Not Available [facility] 4 02:51:18 Respirato ry finding 523584130 Active 2022 Feeling of foreign body in throat; Note: Date Diagnosed : 3 1:02 PM (R09.89) Not Available [facility] 4 02:51:23 Cardiovas cular finding 742256658 Active 2022 Feeling of foreign body in throat; Note: Date Diagnosed : 3 1:02 PM (R09.89) Not Available [facility] 4 02:51:24 Dysphonia 50430821 Active 2021 Hoarsenes s; Note: Date Diagnosed : 06/20/2021 12:18 PM (R49.0) Not Available [facility] 4 02:51:24 Deviated nasal septum 538101510 Active 2022 Deviated nasal septum; Note: Date Diagnosed : 07/06/2022 8:56 AM (J34.2) Not Available [facility] 4 02:51:24 Chronic maxillary sinusitis 75157510 Active 2022 Chronic maxillary sinusitis ; Note: Date Diagnosed : 07/06/2022 8:56 AM (J32.0) Not Available [facility] 4 02:51:21 Posterior rhinorrhe a 48685322 Active 2022 Postnasal drip; Note: Date Diagnosed : 07/06/2022 8:56 AM (R09.82) Not Available [facility] 4 02:51:20 Xerostomi a 61778434 Active 2021 Dry mouth, unspecifi ed; Note: Date Diagnosed : 06/20/2021 12:18 PM (R68.2) Not Available [facility] 4 02:51:23 Impacted cerumen of bilateral ears 49007748740 63902 Active 2023 DENIZ SMALL MD [address] [facility], [facility] [place], [address] , [place] - [facility] 4 09:20:05 Sensorine ural hearing loss of bilateral ears 727742013 Active 2023 SHAHRZAD SALEEM [address] [facility],[place] [address], [facility] [place], [address] , [facility] - [facility] 4 09:30:19 Sensorine ural hearing loss of bilateral ears 596940897 Active 2024 SHAHRZAD SALEEM [address] [facility] [address], [facility] [place] [place], [address] , [place] - [facility] 5 14:43:06 Problem Notes None recorded. Procedures Surgical History Date Name Laterality Status Provider Name and Address Organization Details Recorded Time 4 Comp Audio with Tymps - 95772 & 04959 completed SHAHRZAD SALEEM [address] [facility],[place] [address], [place], [address], [facility] - [facility] 10/08/2023 09:32:23 4 Comp Audio with Tymps - 19372 & 44352 completed SHAHRZAD SALEEM [address] [facility], [place], [address], [place] - [facility] 10/22/2023 16:41:42 Cerumen removal with microscope bilateral completed DENIZ SMALL MD [address] [place] [address], [place], [address], [place] - [facility] 10/08/2023 09:20:34 Imaging Results None recorded. Procedure Notes None recorded. Medical Equipment None Reported. Medications Name Sig Start Date Stop Date Status Note LastModified by Organization Details LastModified Time amoxicill in 500 mg capsule 07/06 completed Medicati on ID: [id number] B rand Name: amoxicil enio Send Method: E-Prescr ibed Sub s Allowed: subs OK Medic ationGen ericName : amoxicil enio Not Available Not Available Not Available tolterodi ne ER 4 mg capsule,e xtended release 24 hr 07/06 completed Medicati on ID: [id number] B rand Name: tolterod ine Send Method: E-Prescr ibed Sub s Allowed: subs OK Medic ationGen ericName : tolterod ine Not Available Not Available Not Available meloxicam 15 mg tablet TAKE 1 TABLET EVERY DAY BY ORAL ROUTE AFTER A MEAL FOR 30 DAYS. active Not Available Not Available No t Available famotidin e 40 mg tablet 06/27 completed Medicati on ID: [id number] B rand Name: famotidi ne Send Method: E-Prescr ibed Sub s Allowed: subs OK Medic ationGen ericName : famotidi ne Not Available Not Available Not Available amlodipin e 5 mg tablet 07/06 completed Medicati on ID: [id number] B rand Name: amlodipi ne Send Method: E-Prescr ibed Sub s Allowed: subs OK Medic ationGen ericName : amlodipi ne Not Available Not Available Not Available tamsulosi n 0.4 mg capsule TAKE 1 CAPSULE BY MOUTH EVERY DAY active Not Available Not Available No t Available omeprazol e 20 mg capsule,d elayed release TAKE 1 CAPSULE BY MOUTH EVERY DAY active Not Available Not Available No t Available doxazosin 4 mg tablet 07/06 completed Medicati on ID: [id number] B rand Name: doxazosi n Send Method: E-Prescr ibed Sub s Allowed: subs OK Medic ationGen ericName : doxazosi n Not Available Not Available Not Available lisinopri l 10 mg-hydroc hlorothia zide 12.5 mg tablet 06/27 completed Medicati on ID: [id number] B rand Name: lisinopr il-hydro chloroth iazide S end Method: E-Prescr ibed Sub s Allowed: subs OK Medic ationGen ericName : lisinopr il-hydro chloroth iazide Not Available Not Available Not Available megestrol 20 mg tablet 06/27 completed Medicati on ID: [id number] B rand Name: megestro l Send Method: E-Prescr ibed Sub s Allowed: subs OK Medic ationGen ericName : megestro l Not Available Not Available Not Available fluticaso ne propionat e 50 mcg/actua tion nasal spray,susie pension 06/27 completed Medicati on ID: [id number] B rand Name: fluticas one propiona te Send Method: E-Prescr ibed Sub s Allowed: subs OK Medic ationGen ericName : fluticas one propiona te Not Available Not Available Not Available ipratropi um bromide 21 mcg (0.03 %) nasal spray INHALE 2 SPRAY NASALLY 3 TIMES A DAY DIRECTED active Not Available Not Available No t Available amoxicill in 875 mg-potass ium clavulana te 125 mg tablet active Not Available Not Available Not Available ciclopiro x 0.77 % topical cream APPLY 1 APPLICAT ION EXTERNAL LY TWICE A DAY TO SKIN OF FEET INCLUDIN G BETWEEN THE TOES 30 DAYS active Not Available Not Available No t Available trospium 20 mg tablet TAKE 1 TABLET BY MOUTH TWICE A DAY active Not Available Not Available No t Available losartan 100 mg-hydroc hlorothia zide 12.5 mg tablet TAKE 1 TABLET BY MOUTH EVERY DAY active Not Available Not Available No t Available omeprazol e 20 mg tablet,de layed release by mouth active Medicati on ID: [id number] [place] By Name: COMPA Am[place] nd Name: omeprazo le Send Method: E-Prescr ibed Sub s Allowed: subs OK Speci al Instruct ion: Take 1 tablet by mouth every day before breakfas t Medica tionGene ricName: omeprazo le Not Available Not Available Not Available diclofena c 1 % topical gel APPLY 2 GRAMS TO THE AFFECTED AREA(S) BY TOPICAL ROUTE 3 TIMES PER DAY active Not Available Not Available No t Available Vitals None Recorded Social History None recorded. Functional Status None recorded. Mental Status None recorded. Family History Nothing Reported. Medical History No medical history recorded. Past Encounters Encounter ID Performer Location Encounter Start Date Encounter Closed Date Diagnosis/Indication Diagnosis SNOMED-CT Code Diagnosis ICD10 Code Diagnosis Note [id number] DENIZ SMALL MD [facility] [address] [address] 10/08/2023 08:49:37 10/08/2023 09:49:10 Xerostomia 82860156 R68.2 Likely multifacto rial (evening dehydratio n from not drinking, mouth breathing) . I recommend continued Biotin mouth rinse. I asked him to follow up if it worsens. Impacted c erumen of bilateral ears [id number] 993866 H61.23 Recurrent Cerumen Impactions : Ears were meticulous ly cleaned bilaterall y today with a curette and suction. The patient tolerated this well and will follow up for repeat debridemen t per routine. Sensorineu ral hearing loss of bilateral ears 120908085 H90.3 I discussed he is a candidate for hearing aids. Will arrange hearing aid evaluation . [id number] SHAHRZAD SALEEM [facility] [address] [address] 10/08/2023 09:29:36 10/23/2023 12:48:31 Sensorineural hearing loss of bilateral ears 854120526 H90.3 Audiologic al evaluation results: 10/08/2023 ight ear:Normal sloping to a mild to profound sensorineu ral hearing loss with excellent word recognitio n.Left ear:Normal sloping to a mild to profound sensorineu ral hearing loss with excellent word recognitio n. Tympanomet ry:Right Ear:Type ALeft Ear:Type A [id number] SHAHRZAD SALEEM [facility] [address] [address] 10/08/2023 09:29:53 10/08/2023 11:12:02 Sensorineural hearing loss of bilateral ears 090774825 H90.3 Audiologic al evaluation results: 10/08/2023 Right ear: Normal sloping to a mild to profound sensorineu ral hearing loss with excellent word recognitio n. Left ear: Normal sloping to a mild to profound sensorineu ral hearing loss with excellent word recognitio n. Tympanomet ry: Right Ear:Type A Left Ear:Type A [id number] EARL JJ, AUD [place] [facility] [place] [address] [facility] [address] [place] [address] 10/10/2023 09:02:22 10/10/2023 10:43:36 Sensorineural hearing loss of bilateral ears 512773961 H90.3 Audiologic al evaluation results: 10/08/2023 ight ear:Normal sloping to a mild to profound sensorineu ral hearing loss with excellent word recognitio n.Left ear:Normal sloping to a mild to profound sensorineu ral hearing loss with excellent word recognitio n. Tympanomet ry:Right Ear:Type ALeft Ear:Type A [id number] EARL JJ, AUD [place] [address] [facility] [address] [place] [address] 12/12/2023 08:55:32 12/12/2023 16:38:45 Sensorineural hearing loss of bilateral ears 216064520 H90.3 Audiologic al evaluation results: 10/08/2023 ight ear:Normal sloping to a mild to profound sensorineu ral hearing loss with excellent word recognitio n.Left ear:Normal sloping to a mild to profound sensorineu ral hearing loss with excellent word recognitio n. Tympanomet ry:Right Ear:Type ALeft Ear:Type A [id number] EARL PEREZEVITT, AUD [place] [facility] [place] [address] [facility] [place] [address] [place] [address] 12/26/2023 14:24:03 12/27/2023 07:26:30 Sensorineural hearing loss of bilateral ears 939599111 H90.3 Audiologic al evaluation results: 10/08/2023 ight ear:Normal sloping to a mild to profound sensorineu ral hearing loss with excellent word recognitio n.Left ear:Normal sloping to a mild to profound sensorineu ral hearing loss with excellent word recognitio n. Tympanomet ry:Right Ear:Type ALeft Ear:Type A [id number] EARL GARDNER, AUD [place] [address] [facility] [place] [address] [place] [address] 01/16/2024 14:25:39 01/20/2024 13:27:47 Sensorineural hearing loss of bilateral ears 163966863 H90.3 Audiologic al evaluation results: 10/08/2023 ight ear:Normal sloping to a mild to profound sensorineu ral hearing loss with excellent word recognitio n.Left ear:Normal sloping to a mild to profound sensorineu ral hearing loss with excellent word recognitio n. Tympanomet ry:Right Ear:Type ALeft Ear:Type A [id number] EARL GARDNER, AUD [place] 100 [facility],[place] [address] [place] [address] 06/18/2024 14:24:44 06/25/2024 19:35:51 Sensorineural hearing loss of bilateral ears 971758658 H90.3 Audiologic al evaluation results: 10/08/2023 ight ear:Normal sloping to a mild to profound sensorineu ral hearing loss with excellent word recognitio n.Left ear:Normal sloping to a mild to profound sensorineu ral hearing loss with excellent word recognitio n. Tympanomet ry:Right Ear:Type ALeft Ear:Type A Health Concerns Section Related Observation LastModified by Organization Detai ls LastModified Time None Recorded Concern Status LastModified by Organization Details LastModified Time None Recorded Advance Directives Directive None Recorded Payers Insurance Date Sequence Insurance Name Policy Number Policy Youngblood Covered Member ID Youngblood Member ID Guarantor Name 06/15/2024 1 [place] [employer] Josue Felix [id number] Josue Felix 06/15/2024 2 [place] [id number] Josue Fullera [id number] Josue Felix Notes Date Note Type Note Provider Name and Address Organization Details Recorded Time 10/10/2023 text/html Patient has a kn own bilateral sensorineural hearing loss. He has noticed increased difficulty hearing in everyday situations. EARL GARDNER, AUD [address] [facility] [place],[place] [address], [place], [address], [facility] - [facility] [place] 12/09/2023 11:58:00 12/12/2023 text/html Patient has know n bilateral SNHL. Discussed various types, models and levels of technology. Patient is interested in mid level technology in rechargeable option. Recommended [employer] 330 Smart RADHA R in silver shin color with #3 R/L M receivers small single vent domes $4544 diamond quote given last time . Patient is here for dispensing of new [employer] 330 Smart RADHA R hearing aids EARL GARDNER, SHAHRZAD 100 [facility],[address], [address], [facility] 12/12/2023 10:08:40 12/26/2023 text/html Patient has know n bilateral SNHL. Patient was interested in mid level technology in rechargeable option. Patient is wearing [employer] 330 Smart RADHA R hearing aids dispensed 12/12/2023 EARL GARDNER, SHAHRZAD [address] [facility] [address], [place], [address], [facility] - [facility] 12/26/2023 14:48:34 01/16/2024 text/html Patient has know n bilateral SNHL. Patient was interested in mid level technology in rechargeable option. Patient is wearing [employer] 330 Smart RADHA R hearing aids dispensed 12/12/2023 Doing very well. Increased to #4 adaptation for best clarity. TV much lower. Hearing much better. F/U 2 weeks. EARL GARDNER, AUD [address] [facility], [address], [facility] - [facility] 06/18/2024 15:05:28 06/18/2024 text/html Patient has know n bilateral SNHL. Patient was interested in mid level technology in rechargeable option. Patient is wearing [employer] 330 Smart RADHA R hearing aids dispensed 12/12/2023 Doing very well. Increased to #4 adaptation for best clarity. TV much lower. Hearing much better. F/U 2 weeks. Hearing better since increased to #4 adaptation. occasionally getting FB - reran FB Sweep. 6 mo FFU appt made. EARL GARDNER, AUD 100 [facility], [place], [address], [facility] - [facility] 06/18/2024 15:06:59
== END 2024-08-03 09:38 | disposition home or self-care (01) ==
PROVIDERS: PCP Internal Medicine; Visit Provider Nurse Practitioner Family
DX: R21 Rash and other nonspecific skin eruption (principal)

== ENCOUNTER → 2024-08-03 08:55 | Outpatient (BNVA) | payer MEDICARE, SELFPAY | PROVIDERS: PCP Internal Medicine; Visit Provider Nurse Practitioner Family | DX: R21 Rash and other nonspecific skin eruption (principal) | CPT/HCPCS: 99212 ==